=== PATIENT | female | born 1960 | race Caucasian/White ===

== ENCOUNTER 2017-10-08 02:18 | Emergency (ER) | payer OTHER ==
[2017-10-08] MEDS: KETOROLAC 15 MG INJ IM (03:37)
== END 2017-10-08 05:14 | disposition home or self-care (01) ==
LOC: FTE 02:18
DX: S16.1XXA Strain of muscle, fascia and tendon at neck level, initial encounter (principal); R40.2412 Glasgow coma scale score 13-15, at arrival to emergency department; J44.9 Chronic obstructive pulmonary disease, unspecified; F17.210 Nicotine dependence, cigarettes, uncomplicated; V49.40XA Driver injured in collision with unspecified motor vehicles in traffic accident, initial encounter
CPT/HCPCS: 72040; 96372; 99284-25